=== PATIENT | male | born 1980 | race Caucasian/White ===

== ENCOUNTER 2025-04-21 11:03 | Emergency (ER) | payer OTHER ==
[~2025-04-21] VITALS: Ht 170.2 cm; Wt 81.4 kg
[2025-04-21 11:59] LABS: PLATELET COUNT (AUTO) 290 K/uL (150-450); RED BLOOD CELL COUNT(AUTO) 5.27 MIL/uL (4.50-5.90); RED CELL DISTRIBUTION WIDTH 13.9 % (11.5-14.5); WHITE BLOOD COUNT (AUTO) 6.2 K/uL (4.5-11.0)
[2025-04-21 12:04] LABS: CALCIUM, TOTAL 9.2 mg/dL (8.8-10.5); CREATININE 1.24 mg/dL (0.60-1.30); GLOMERULAR FILTR. RATE CALC > 60 mL/min (>60); GLUCOSE,RANDOM 76 mg/dL (70-110); SODIUM SERUM 140 mmol/L (136-145); UREA NITROGEN, BLOOD 14 mg/dL (7-18)
[2025-04-21 12:16] LABS: ASPARTATE AMINOTRANSFERASE 24.0 U/L (15-37); TOTAL PROTEIN, SERUM 7.9 g/dL (6.4-8.2)
[2025-04-21 13:00] LABS: APPEARANCE,URINE CLEAR (CLEAR); GLUCOSE, URINE (UA) NEGATIVE (NEGATIVE); LEUKOCYTE ESTERASE ,URINE NEGATIVE (NEGATIVE); NITRATE,URINE NEGATIVE (NEGATIVE); OCCULT BLOOD,URINE SMALL (NEGATIVE); SPECIFIC GRAVITIY, URINE 1.031 (1.003-1.030)
[2025-04-21] MEDS: ACETAMINOPHEN 500 MG TABLET PO ONE (13:26)
[2025-04-21] MEDS: IBUPROFEN 600 MG TABLET PO ONE (13:27)
[2025-04-21] MEDS ORDERED: ACET-66 PO (17:27)
[2025-04-21] MEDS ORDERED: IBUP-1554 PO (17:27)
[2025-04-21] MEDS ORDERED: METH-659 PO (17:27)
[2025-04-21 17:36] VITALS: BP 101/63; PULSE 65; RESP 18; TEMP 97.5; O2SAT 98
== END 2025-04-21 17:53 | disposition home or self-care (01) ==
LOC: EMS 11:03
DX: M54.50 Low back pain, unspecified (principal); R31.9 Hematuria, unspecified; F17.210 Nicotine dependence, cigarettes, uncomplicated
CPT/HCPCS: 74176; 80048; 80076; 81001; 83690; 85025; 99284